=== PATIENT | male | born 1995 | race Two or more races ===

== ENCOUNTER 2024-06-03 19:57 | Inpatient (IN) | payer MEDICAID, OTHER ==
[~2024-06-03] VITALS: Ht 182.9 cm; Wt 133.3 kg
--- NOTE | 2024-06-03 20:26 | ED.PDOC ---
History of Present Illness HPI Comments 29 Year old male who came to ER via EMS for alcohol intoxication. Patient admits that he drank 2 bottles of vodka today, he started feeling anxious, and became short of breath so he called paramedics. Denies being suicidal. Chief Complaint: ETOH Time Seen by MD: 20:26 Reviewed Notes: Nurses Notes Allergies: Coded Allergies: NO KNOWN ALLERGIES (Unverified , 06/03/24) Information Source: Patient Mode of Arrival: Ambulatory Severity: Moderate Timing: Hours Duration: Since onset Prehospital treatment: None Medication Refill: For: Other Past Medical History PAST MEDICAL HISTORY: Denies Surgical History: Denies all surgeries Family History Family History: Reviewed,noncontributory to illness Social History Smoker: Non-Smoker Alcohol: Heavy Drugs: Denies Drug Use Lives In: Home Constitutional: denies: chills, diaphoresis, fatigue, fever, malaise, sweats, weakness, others EENTM: denies: blurred vision, double vision, ear bleeding, ear discharge, ear drainage, ear pain, ear ringing, eye pain, eye redness, hearing loss, mouth pain, mouth swelling, nasal discharge, nose bleeding, nose congestion, nose pain, photophobia, tearing, throat pain, throat swelling, voice changes, others Respiratory: reports: SOB at rest, shortness of breath; denies: cough, hemoptysis, orthopnea, SOB with excertion, stridor, wheezing, others Cardiovascular: denies: chest pain, dizzy spells, diaphoresis, Dyspnea on exertion, edema, irregular heart beat, left arm pain, lightheadedness, palpitations, PND, syncope, others Gastrointestinal: denies: abdomen distended, abdominal pain, blood streaked bowels, constipated, diarrhea, dysphagia, difficulty swallowing, hematemesis, melena, nausea, poor appetite, poor fluid intake, rectal bleeding, rectal pain, vomiting, others Genitourinary: denies: burning, dysuria, flank pain, frequency, hematuria, incontinence, penile discharge, penile sore, pain, testicle pain, testicle swelling, urgency, others Neurological: denies: dizziness, fainting, headache, left sided numbness, left sided weakness, numbness, paresthesia, pre-existing deficit, right sided numbnes s, right sided weakness, seizure, speech problems, tingling, tremors, weakness, others Musculoskeletal: denies: back pain, gout, joint pain, joint swelling, muscle pain, muscle stiffness, neck pain, others Integumetry: denies: bruises, change in color, change in hair/nails, dryness, laceration, lesions, lumps, rash, wounds, others Allergic/Immunocompromised: denies: Difficulty Healing, Frequent Infections, Hives, Itching, others Hematologic/Lymphatic: denies: anemia, blood clots, easy bleeding, easy bruising, swollen glands, others Endocrine: denies: excessive hunger, excessive sweating, excessive thirst, excessive urination, flushing, intolerance to cold, intolerance to heat, unexplained weight gain, unexplained weight loss, others Psychiatric: reports: anxiety; denies: bipolar disorder, depression, hopeless, panic disorder, schizophrenia, sleepless, suicidal, others Physical Exam General Appearance: No Apparent Distress, Normal HEENT: Normal ENT Inspection, Pharynx Normal, TMs Normal Neck: Full Range of Motion, Non-Tender, Normal, Normal Inspection Respiratory: Chest Non-Tender, Lungs Clear, No Accessory Muscle Use, No Respiratory Distress, Normal Breath Sounds Cardiovascular: No Edema, No JVD, No Murmur, No Gallop, Normal Peripheral Pulse s, Regular Rate/Rhythm Breast Exam: Deferred Gastrointestinal: No Organomegaly, Non Tender, No Pulsatile Mass, Normal Bowel Sounds, Soft Genitalia: Deferred Pelvic: Deferred Rectal: Deferred Extremities: No calf tenderness, Normal capillary refill, Normal inspection, Normal range of motion, Non-tender, No pedal edema Musculoskeletal : Apperance: Normal Neurologic: Alert, police lieutenant patrol II-XII nml as Tested, No Motor Deficits, Normal Affect, Normal Mood, No Sensory Deficits Cerebellar Function: Normal Reflexes: Normal Skin: Dry, Normal Color, Warm Lymphatic: No Adenopathy Was a procedure done? Was a procedure done?: No Differential Dx Considerations may include: Alcohol intoxication, anxiety X-Ray, Labs, Meds, VS Vital Signs Date Time Temp Pulse Resp B/P (MAP) Pulse Ox O2 Delivery O2 Flow Rate FiO2 06/04/24 05:00 104 10 112/37 (62) 93 06/04/24 03:27 125 16 116/77 (90) 95 06/04/24 03:00 120 28 126/88 (101) 98 06/04/24 01:00 113 28 114/80 (91) 98 06/03/24 23:00 109 15 139/90 (106) 98 06/03/24 21:00 103 15 120/67 (84) 98 06/03/24 20:34 105 15 94 Room Air* 0 21 06/03/24 20:34 98.7 105 15 115/85 (95) 94 98.7 06/03/24 19:58 107 06/03/24 19:57 98.7 106 18 130/99 (109) 95 Lab Test 06/04/24 02:03 06/03/24 23:20 Range/Units White Blood Count 12.3 H 4.4-10.8 10^3/uL Red Blood Count 5.14 4.5-5.90 10^6/uL Hemoglobin 15.0 13.5-17.5 g/dL Hematocrit 44.9 41.0-53.0 % Mean Corpuscular Volume 87.4 80.0-100.0 fL Mean Corpuscular Hemoglobin 29.2 28.0-32.0 pg Mean Corpuscular Hemoglobin Concent 33.4 32.0-36.0 g/dL Red Cell Distribution Width 15.1 H 11.8-14.3 % Platelet Count 498 H 140-450 10^3/uL Mean Platelet Volume 7.2 6.9-10.8 fL Neutrophils (%) (Auto) 62.2 37.0-80.0 % Lymphocytes (%) (Auto) 31.0 10.0-50.0 % Monocytes (%) (Auto) 5.5 0.0-12.0 % Eosinophils (%) (Auto) 0.8 0.0-7.0 % Basophils (%) (Auto) 0.5 0.0-2.0 % Neutrophils # (Auto) 7.6 1.6-8.6 10 ^3/uL Lymphocytes # (Auto) 3.8 0.4-5.4 10 ^3/uL Monocytes # (Auto) 0.7 0-1.3 10 ^3/uL Eosinophils # (Auto) 0.1 0-0.8 10 ^3/uL Basophils # (Auto) 0.1 0-0.2 10 ^3/uL Nucleated Red Blood Cells 0.0 % Sodium Level 144 136-145 mmol/L Potassium Level 3.5 3.5-5.1 mmol/L Chloride Level 109 H 98-107 mmol/L Carbon Dioxide Level 23 20-31 mmol/L Anion Gap 12 5-15 Blood Urea Nitrogen < 5 L 9-23 mg/dL Creatinine 0.76 0.700-1.30 mg/dL Glomerular Filtration Rate Calc 123 >90 mL/min BUN/Creatinine Ratio 6.6 L 10.0-20.0 Serum Glucose 102 74-106 mg/dL Calcium Level 9.2 8.7-10.4 mg/dL Plasma/Serum Blood Alcohol 242.4 H <10 mg/dL Urine Color Light-yellow Yellow Urine Clarity Clear Clear Urine pH 6.0 5.0-9.0 Urine Specific [place] 1.014 1.001-1.035 Urine Protein Negative Negative Urine Ketones Negative Negative Urine Blood Negative Negative /uL Urine Nitrite Negative Negative Urine Bilirubin Negative Negative Urine Urobilinogen Normal Negative mg/dL Urine Leukocyte Esterase Negative Negative /uL Urine RBC 2 0 - 3 /hpf Urine WBC 1 0 - 3 /hpf Urine Squamous Epithelial Cells None seen <5 /hpf Urine Bacteria Few H None Seen /hpf Urine Mucus Few None Seen Urine Glucose Normal Normal mg/dL Current Medications Medications (Trade) Dose Ordered Sig/Malia Route Start Time Stop Time Status Last Admin Sodium Chloride 1,000 ml @ 1,000 mls/hr Q1H ONCE IV 06/04/24 02:15 06/04/24 03:14 DC 06/04/24 02:30 Ondansetron HCl (Zofran) 4 mg ONCE ONCE IV 06/04/24 02:15 06/04/24 02:16 DC 06/04/24 02:12 Lorazepam (Ativan Inj) 1 mg ONCE ONCE IV 06/04/24 02:15 06/04/24 02:16 DC 06/04/24 02:13 Time of 1ST Reevaluation: 20:24 Reevaluation 1ST: Unchanged Patient Education/Counseling: Diagnosis, Treatment Family Education/Counseling: No Family Present Departure 1 Departure Time of Disposition: 05:37 (Patient presented with alcohol intoxication. We will continue to monitor patient told clinically sober) Impression: Primary Impression: Alcohol intoxication delirium Disposition: 30 STILL A PATIENT Condition: Serious Critical Care Note Critical Care Time?: No Stability Stability form required: No Heart Score Heart Score: Heart Score Response (Comments) Value History N/A 0 EKG N/A 0 Age N/A 0 Risk Factors N/A 0 Troponin N/A 0 Total 0 I personally scribed for MARIAH NICHOLS MD ([facility]) on 06/03/24 at 20:26. Electronically submitted by [place] ([facility]). I personally scribed for MARIAH NICHOLS MD ([facility]) on 06/04/24 at 01:59. Electronically submitted by [place] ([facility]). MARIAH NICHOLS MD Jun 03, 2024 20:26
[2024-06-03 20:34] VITALS: PULSE 105; RESP 15; O2SAT 94
[2024-06-03 23:38] LABS: Urine Bacteria FEW /hpf (None Seen); Urine Blood Negative /uL (Negative); Urine Clarity Clear (Clear); Urine Color Light-Yellow (Yellow); Urine Mucus FEW (None Seen); Urine Protein, UAD Negative (Negative); Urine Specific Gravity 1.014 (1.001-1.035); Urine Urobilinogen Normal (Negative); Urine WBC 1 /hpf (0 - 3)
[2024-06-04] MEDS: ONDANSETRON HCL 4 MG/2 ML VIAL IV ONE (02:12)
[2024-06-04] MEDS: LORazepam 2MG/ML-1ML VIAL IV ONE ×3 (02:13→13:20)
[2024-06-04 02:17] LABS: Basophils # (auto) 0.1 10 ^3/uL (0-0.2); Basophils % (auto) 0.5 % (0.0-2.0); Eosinophils # (auto) 0.1 10 ^3/uL (0-0.8); Eosinophils % (auto) 0.8 % (0.0-7.0); Hematocrit 44.9 % (41.0-53.0); Lymphocytes # (auto) 3.8 10 ^3/uL (0.4-5.4); Mean Corpuscular Hemoglobin 29.2 pg (28.0-32.0); Mean Corpuscular Hgb Conc. 33.4 g/dL (32.0-36.0); Mean Corpuscular Volume 87.4 fL (80.0-100.0); Monocytes # (auto) 0.7 10 ^3/uL (0-1.3); Monocytes % (auto) 5.5 % (0.0-12.0); Neutrophils # (auto) 7.6 10 ^3/uL (1.6-8.6); Neutrophils % (auto) 62.2 % (37.0-80.0); Platelet Count (auto) 498 10^3/uL (140-450); Red Blood Cells 5.14 10^6/uL (4.5-5.90); Red Cell Distribution Width 15.1 % (11.8-14.3); White Blood Cell 12.3 10^3/uL (4.4-10.8)
--- NOTE | 2024-06-04 02:18 | ECG ---
[facility] Test Date: 2024-06-03 Test Time: 19:58:11 Pat Name: MARIA ISABEL WIN Department: ED Room: 0288T Gender: M Entry Level Civil Engineer: : 1995 Requested By: MARIAH NICHOLS Order Number: [id number] Reading MD: Av Barkley Measurements Intervals [place] Rate: 107 P: 18 [place]: 144 QRS: -37 QRSD: 109 T: 5 QT: 349 QTc: 466 Interpretive Statements Sinus tachycardia Left axis deviation Electronically Signed On 06-15-2024 12:38:26 PST by Av Barkley Please click the below link to view image of tracing.
[2024-06-04 02:24] LABS: Chloride 109 mmol/L (98-107); Potassium 3.5 mmol/L (3.5-5.1); Sodium 144 mmol/L (136-145)
[2024-06-04 02:25] LABS: Anion Gap 12 (5-15); Carbon Dioxide 23 mmol/L (20-31)
[2024-06-04 02:26] LABS: Calcium 9.2 mg/dL (8.7-10.4)
[2024-06-04 02:30] LABS: Glucose 102 mg/dL (74-106)
[2024-06-04] MEDS: SODIUM CHLORIDE 0.9% 1,000 ML IV ONE ×4 (02:30→17:16)
[2024-06-04 02:31] LABS: BUN/Creatinine Ratio 6.6 (10.0-20.0); Blood Urea Nitrogen < 5 mg/dL (9-23)
[2024-06-04 03:06] LABS: Blood Alcohol 242.4 mg/dL (<10)
[2024-06-04] MEDS: THIAMINE 100mg/ml INJ (200mg/2ml VIAL) IV ONE (08:45)
[2024-06-04 08:52] VITALS: PULSE 126; RESP 18; O2SAT 95
[2024-06-04] MEDS ORDERED: ONDANSETRON HCL 4 MG/2 ML VIAL IV PRN (17:00)
[2024-06-04] MEDS ORDERED: LORazepam 2MG/ML-1ML VIAL IV SCH (17:00)
[2024-06-04] MEDS ORDERED: HYDROcodone-ACET 5/325MG TAB PO PRN (17:00)
[2024-06-04] MEDS ORDERED: TEMAZEPAM 15 MG CAP PO PRN (17:00)
[2024-06-04] MEDS ORDERED: ACETAMINOPHEN 325 MG TAB PO PRN (17:00)
[2024-06-04] MEDS ORDERED: DOCUSATE SOD 100 MG CAP PO PRN (17:00)
[2024-06-04] MEDS ORDERED: MAALOX PLUS or MAALOX 30 ML PO PRN (17:00)
[2024-06-04] MEDS: MULTIPLE VITAMIN TAB PO ONE (17:00)
[2024-06-04] MEDS ORDERED: LORazepam 0.5 MG TAB PO SCH ×2 (17:00)
--- NOTE | 2024-06-04 17:12 | DVHHP2 ---
History of Present Illness Reason for Visit: intoxication History of Present Illness 29 yo etoh heavy user states to drink 2 plus bottles of vodka daily with complaints weakness and started having signs of withdrawal in the ed recommended for admission for safety Psych: Anxiety Review of Systems Constitutional: Yes: Sweats, Weakness; No: Fever, Chills, Malaise, Other Eyes: No: Pain, Vision change, Conjunctivae inflammation, Eyelid inflammation, Other, Redness ENT: No: Ear pain, Ear discharge, Nose pain, Nose discharge, Nose congestion, Mouth pain, Mouth swelling, Throat pain, Throat swelling, Other Respiratory: No: Cough, Dry, Shortness of breath, SOB with excertion, Wheezing, Hemoptysis, Pleuritic Pain, Sputum, Wheezing, Other Cardiovascular: No: Chest Pain, Palpitations, Orthopnea, Paroxysmal Noc. Dyspnea, Edema, Lt Headedness, Other Gastrointestinal: No: Nausea, Vomiting, Abdominal Pain, Diarrhea, Constipation, Melena, Hematochezia, Other Genitourinary: No Dysuria, No Frequency, No Incontinence, No Hematuria, No Retention, No Other Musculoskeletal: No: other, neck pain, shoulder pain, arm pain, back pain, hand pain, leg pain, foot pain Skin: No: Rash, Lesions, Jaundice, Bruising, Other Neurological: Weakness, Change in speech; No: Numbness, Incoordination, Confusion, Seizures, Other Allergies: Coded Allergies: NO KNOWN ALLERGIES (Unverified , 06/03/24) Exam Vital Signs Vital Signs Date Time Temp Pulse Resp B/P (MAP) Pulse Ox O2 Delivery O2 Flow Rate FiO2 06/04/24 10:00 125 17 104/68 (80) 94 06/04/24 08:52 Room Air* 0 21 06/04/24 08:00 98.6 98.6 General Appearance: Alert HEENT: Atraumatic, PERRLA Respiratory: Clear to auscultation, Normal air movement Cardiovascular: Regular rate, Normal S1, Normal S2 Abdominal: Normal bowel sounds, Soft, No tenderness Extremities: No clubbing, No cyanosis Skin: No rashes, No breakdown Neuro: Normal gait, Normal speech Psych/Mental Status: Mood NL Labs/Xrays Labs Test 06/04/24 02:03 06/03/24 23:20 Range/Units White Blood Count 12.3 H 4.4-10.8 10^3/uL Red Blood Count 5.14 4.5-5.90 10^6/uL Hemoglobin 15.0 13.5-17.5 g/dL Hematocrit 44.9 41.0-53.0 % Mean Corpuscular Volume 87.4 80.0-100.0 fL Mean Corpuscular Hemoglobin 29.2 28.0-32.0 pg Mean Corpuscular Hemoglobin Concent 33.4 32.0-36.0 g/dL Red Cell Distribution Width 15.1 H 11.8-14.3 % Platelet Count 498 H 140-450 10^3/uL Mean Platelet Volume 7.2 6.9-10.8 fL Neutrophils (%) (Auto) 62.2 37.0-80.0 % Lymphocytes (%) (Auto) 31.0 10.0-50.0 % Monocytes (%) (Auto) 5.5 0.0-12.0 % Eosinophils (%) (Auto) 0.8 0.0-7.0 % Basophils (%) (Auto) 0.5 0.0-2.0 % Neutrophils # (Auto) 7.6 1.6-8.6 10 ^3/uL Lymphocytes # (Auto) 3.8 0.4-5.4 10 ^3/uL Monocytes # (Auto) 0.7 0-1.3 10 ^3/uL Eosinophils # (Auto) 0.1 0-0.8 10 ^3/uL Basophils # (Auto) 0.1 0-0.2 10 ^3/uL Nucleated Red Blood Cells 0.0 % Sodium Level 144 136-145 mmol/L Potassium Level 3.5 3.5-5.1 mmol/L Chloride Level 109 H 98-107 mmol/L Carbon Dioxide Level 23 20-31 mmol/L Anion Gap 12 5-15 Blood Urea Nitrogen < 5 L 9-23 mg/dL Creatinine 0.76 0.700-1.30 mg/dL Glomerular Filtration Rate Calc 123 >90 mL/min BUN/Creatinine Ratio 6.6 L 10.0-20.0 Serum Glucose 102 74-106 mg/dL Calcium Level 9.2 8.7-10.4 mg/dL Plasma/Serum Blood Alcohol 242.4 H <10 mg/dL Urine Color Light-yellow Yellow Urine Clarity Clear Clear Urine pH 6.0 5.0-9.0 Urine Specific [place] 1.014 1.001-1.035 Urine Protein Negative Negative Urine Ketones Negative Negative Urine Blood Negative Negative /uL Urine Nitrite Negative Negative Urine Bilirubin Negative Negative Urine Urobilinogen Normal Negative mg/dL Urine Leukocyte Esterase Negative Negative /uL Urine RBC 2 0 - 3 /hpf Urine WBC 1 0 - 3 /hpf Urine Squamous Epithelial Cells None seen <5 /hpf Urine Bacteria Few H None Seen /hpf Urine Mucus Few None Seen Urine Glucose Normal Normal mg/dL Assessment/Plan Assessment/Plan Admit Isaias Acute ETOH withdrawal suspected ETOH level > 240 Patient no acute distress IV hydration [facility] ETOH withdrawal protocol ativan from breakthrough isaias until stable for discharge possible rehab needs on discharge Plan discussed with: Patient My Orders Orders - JAIME OVALLE MD Procedure Category Date Status Time Complete Blood Count LAB 06/04/24 Logged 16:50 Comprehensive LAB 06/04/24 Logged Metabolic Panel 16:50 Blood Alcohol LAB 06/04/24 Logged 16:50 Sodium Chloride 0.9% PHA 06/04/24 Logged 17:00 Magnesium LAB 06/04/24 Logged 16:50 Thiamine Inj PHA 06/05/24 Logged 10:00 Folic Acid Tablet PHA 06/05/24 Logged 10:00 Multiple Vitamin PHA 06/04/24 Logged Tablet (Mvi Tab) 17:00 Lorazepam 2mg/Ml Inj PHA 06/04/24 Logged (Ativan Inj) 17:00 Lorazepam 2mg/Ml Inj PHA 06/04/24 Logged (Ativan Inj) 17:00 Lorazepam Tablet PHA 06/04/24 Logged (Ativan Tablet) 17:00 Lorazepam Tablet PHA 06/04/24 Logged (Ativan Tablet) 17:00 Etoh Withdrawal [place] 06/04/24 In Process Assessment 16:50 Etoh Withdrawal [place] 06/04/24 In Process Assessment 16:50 Admit ADMIT 06/04/24 Transmitted 16:50 Code Status CODE 06/04/24 Transmitted 16:50 Vital Signs [place] 06/04/24 In Process 16:50 Review Orders With [facility] 06/04/24 In Process Adm. 16:50 Regular Diet DIET 06/04/24 Transmitted Dinner Alum & Mag PHA 06/04/24 Logged Hydrox-Simethicone 17:00 Docusate Sodium PHA 06/04/24 Logged Capsule (Colace 17:00 Acetaminophen Tablet PHA 06/04/24 Logged (Tylenol Tablet) 17:00 Temazepam (Restoril) PHA 06/04/24 Logged 17:00 Notify Md Of Changes [facility] 06/04/24 In Process From Base 16:50 Advance Directive [facility] 06/04/24 In Process 16:50 Patient Condition ORDERS 06/04/24 Transmitted 16:50 Allergies [facility] 06/04/24 In Process 16:50 Hydrocodone-Acet PHA 06/04/24 Logged 5/325mg Tab (Novinger 17:00 Ondansetron Hcl PHA 06/04/24 Logged (Zofran) 17:00 Notify Md Of Changes [facility] 06/04/24 In Process From Base 16:50 Hammer Smith For [facility] 06/04/24 In Process 24 Hours 16:50 Emergency Dysrhythmia [facility] 06/04/24 In Process Protocol 16:50 Rhythm Strips Once [facility] 06/04/24 In Process Every Shift 16:50 Oxygen By Nasal RT 06/04/24 Transmitted Cannula 16:50 Problem List: (1) Alcohol intoxication delirium Date of Service: Jun 04, 2024 Billing Provider: JAIME OVALLE MD Common Visit Codes: [id number] INP/OBS CARE (HIGH) JAIME OVALLE MD Jun 04, 2024 17:12
[2024-06-04 18:05] LABS: Basophils # (auto) 0 10 ^3/uL (0-0.2); Basophils % (auto) 0.5 % (0.0-2.0); Eosinophils # (auto) 0 10 ^3/uL (0-0.8); Eosinophils % (auto) 0.3 % (0.0-7.0); Hematocrit 39.1 % (41.0-53.0); Hemoglobin 13.3 g/dL (13.5-17.5); Lymphocytes # (auto) 1.6 10 ^3/uL (0.4-5.4); Lymphocytes % (auto) 17.8 % (10.0-50.0); Mean Corpuscular Hemoglobin 29.7 pg (28.0-32.0); Mean Corpuscular Volume 87.5 fL (80.0-100.0); Monocytes # (auto) 0.7 10 ^3/uL (0-1.3); Monocytes % (auto) 8.2 % (0.0-12.0); Neutrophils # (auto) 6.5 10 ^3/uL (1.6-8.6); Neutrophils % (auto) 73.2 % (37.0-80.0); Platelet Count (auto) 430 10^3/uL (140-450); Red Blood Cells 4.47 10^6/uL (4.5-5.90); Red Cell Distribution Width 14.8 % (11.8-14.3); White Blood Cell 8.9 10^3/uL (4.4-10.8)
[2024-06-04 18:14] LABS: Alanine Aminotransferase 24 U/L (7-40); Alkaline Phosphatase 89 U/L (46-116); Anion Gap 9 (5-15); Aspartate Aminotransferase 16 U/L (13-40); BUN/Creatinine Ratio 8.8 (10.0-20.0); Blood Alcohol < 3.0 mg/dL (<10); Blood Urea Nitrogen 7 mg/dL (9-23); Calcium 9.1 mg/dL (8.7-10.4); Carbon Dioxide 26 mmol/L (20-31); Chloride 107 mmol/L (98-107); Glucose 88 mg/dL (74-106); Magnesium 1.7 mg/dL (1.6-2.6); Potassium 3.6 mmol/L (3.5-5.1); Sodium 142 mmol/L (136-145)
[2024-06-04 18:15] LABS: Albumin 4.2 g/dL (3.2-4.8); Total Protein 7.2 g/dL (5.7-8.2)
[2024-06-04 18:16] LABS: Bilirubin, Total 0.8 mg/dL (0.2-1.0)
[2024-06-04] MEDS: LORazepam 2MG/ML-1ML VIAL IV SCH (18:24)
[2024-06-04 19:39] VITALS: PULSE 114; RESP 17; O2SAT 97
[2024-06-05 08:00] VITALS: PULSE 79; RESP 16; O2SAT 96
[2024-06-05] MEDS: chlordiazePOXIDE HCL 25 MG CAP PO SCH (09:35)
[2024-06-05] MEDS: THIAMINE 100mg/ml INJ (200mg/2ml VIAL) IV SCH (09:35)
[2024-06-05] MEDS: FOLIC ACID 1 MG TAB PO SCH (09:35)
--- NOTE | 2024-06-05 11:45 | DVHPN2 ---
Subjective The patient seen and examined at bedside. Still shaking, denies hallucination. Reviewed: Care Plan, H&P, Labs, Medications, Previous Orders, Radiology Changes from previous H/P or p: No Changes Eyes: No Pain, No Vision change, No Conjunctivae inflammation, No Eyelid inflammation, No Other, No Redness ENT: No Ear pain, No Ear discharge, No Nose pain, No Nose discharge, No Nose congestion, No Mouth pain, No Mouth swelling, No Throat pain, No Throat swelling, No Other Cardiovascular: No Chest Pain, No Palpitations, No Orthopnea, No Paroxysmal Noc. Dyspnea, No Edema, No Lt Headedness, No Other Respiratory: No Cough, No Dry, No Shortness of breath, No SOB with excertion, No Wheezing, No Hemoptysis, No Pleuritic Pain, No Sputum, No Other Gastrointestinal: No Nausea, No Vomiting, No Abdominal Pain, No Diarrhea, No Constipation, No Melena, No Hematochezia, No Other Genitourinary: No Dysuria, No Frequency, No Incontinence, No Hematuria, No Retention, No Other Musculoskeletal: No other, No neck pain, No shoulder pain, No arm pain, No back pain, No hand pain, No leg pain, No foot pain Skin: No Rash, No Lesions, No Jaundice, No Bruising, No Other Objective Vitals Vital Signs Date Time Temp Pulse Resp B/P (MAP) Pulse Ox O2 Delivery O2 Flow Rate FiO2 06/05/24 10:50 84 06/05/24 10:12 98.0 18 135/74 (94) 95 98.0 06/05/24 08:00 Room Air* 0 21 Intake/Output Intake and Output 06/05/24 07:00 Intake Total 2050 ml Balance 2050 ml Intake IV Total 2050 ml General Appearance: Alert, No acute distress HEENT: Atraumatic, PERRLA, EOMI, Mucous membr. moist/pink Neck: Supple Lungs: Clear to auscultation, Normal air movement Cardiovascular: Regular rate, Normal S1, Normal S2, No murmurs, Rubs Abdomen: Normal bowel sounds, Soft Neuro: Cranial nerves 3-12 NL Psych/Mental Status: Mental status NL Medications Current Medications Medications Dose Ordered Sig/Malia Route Start Time Stop Time Status Last Admin Dose Admin Thiamine HCl 100 mg DAILY IV 06/05/24 10:00 06/05/24 09:35 100 MG Folic Acid 1 mg DAILY PO 06/05/24 10:00 06/05/24 09:35 1 MG Lorazepam 1 mg Q4H IV 06/04/24 17:00 06/05/24 09:35 1 MG Al Hydrox/Mg Hydrox/Simethicone 30 ml Q6HP PRN PO 06/04/24 17:00 Docusate Sodium 100 mg BIDPRN PRN PO 06/04/24 17:00 Acetaminophen 650 mg Q6HP PRN PO 06/04/24 17:00 Temazepam 15 mg QHSP PRN PO 06/04/24 17:00 Acetaminophen/ Hydrocodone Bitart 1 tab Q4HP PRN PO 06/04/24 17:00 Ondansetron HCl 4 mg Q4HP PRN IV 06/04/24 17:00 Chlordiazepoxide HCl 50 mg Q8H PO 06/05/24 07:30 06/05/24 23:31 06/05/24 09:35 50 MG Chlordiazepoxide HCl 50 mg Q12HR PO 06/06/24 10:00 06/06/24 22:01 Chlordiazepoxide HCl 25 mg Q12HR PO 06/07/24 10:00 06/07/24 22:01 Chlordiazepoxide HCl 25 mg QAM PO 06/08/24 07:00 06/08/24 07:01 Laboratory Results Laboratory Tests 06/04/24 17:25 Chemistry Test 06/04/24 17:25 Albumin 4.2 g/dL (3.2-4.8) Calcium Level 9.1 mg/dL (8.7-10.4) Magnesium Level 1.7 mg/dL (1.6-2.6) Total Protein 7.2 g/dL (5.7-8.2) LFT Test 06/04/24 17:25 Alanine Aminotransferase (ALT) 24 U/L (7-40) Alkaline Phosphatase 89 U/L (46-116) Aspartate Amino Transferase (AST) 16 U/L (13-40) Total Bilirubin 0.8 mg/dL (0.2-1.0) Urinalysis Test 06/03/24 23:20 Urine Color Light-yellow (Yellow) Urine Clarity Clear (Clear) Urine pH 6.0 (5.0-9.0) Urine Specific [place] 1.014 (1.001-1.035) Urine Protein Negative (Negative) Urine Ketones Negative (Negative) Urine Blood Negative /uL (Negative) Urine Nitrite Negative (Negative) Urine Bilirubin Negative (Negative) Urine Urobilinogen Normal mg/dL (Negative) Urine Leukocyte Esterase Negative /uL (Negative) Urine RBC 2 /hpf (0 - 3) Urine WBC 1 /hpf (0 - 3) Urine Squamous Epithelial Cells None seen /hpf (<5) Urine Bacteria Few /hpf (None Seen) H Urine Mucus Few (None Seen) Urine Glucose Normal mg/dL (Normal) Labs and/or images reviewed: Labs reviewed by me Assessment/Plan Assessment/Plan Alcohol abuse Alcohol withdrawal Plan: Continuing current management. Continuing with banana bag. Continuing with Librium. Advised the patient to stop drinking. Advised the patient to drawn alcohol anonymous as outpatient. Advised the patient to seek for rehab if he wanted to give up alcohol. Plan discussed with: Patient Date of Service: Jun 05, 2024 Billing Provider: SILVIO BRASWELL MD Common Visit Codes: [id number] INP/OBS CARE(HIGH) SILVIO BRASWELL MD Jun 05, 2024 11:45
[2024-06-05] MEDS ORDERED: LORazepam 2MG/ML-1ML VIAL IV PRN (17:30)
[2024-06-05 18:30] VITALS: BP 128/84; PULSE 94; RESP 18; TEMP 97.9; O2SAT 96
[2024-06-05 18:44] VITALS: BP 128/84; PULSE 94; RESP 18; TEMP 97.9; O2SAT 96
[2024-06-05 20:00] VITALS: PULSE 107; PULSE 95; RESP 18; O2SAT 96
[2024-06-05 20:53] VITALS: BP 117/72; PULSE 67; RESP 18; TEMP 98; O2SAT 96
[2024-06-06 00:54] VITALS: BP 131/80; PULSE 89; RESP 18; TEMP 97.5; O2SAT 96
[2024-06-06 04:19] VITALS: BP 126/87; PULSE 86; RESP 18; TEMP 97.9; O2SAT 96
[2024-06-06 08:00] VITALS: PULSE 86
[2024-06-06] MEDS: chlordiazePOXIDE HCL 25 MG CAP PO SCH (08:16)
[2024-06-06 08:41] VITALS: BP 124/76; PULSE 78; RESP 19; TEMP 97.3; O2SAT 96
[2024-06-06 12:30] VITALS: BP 111/76; PULSE 87; RESP 18; TEMP 97.8; O2SAT 95
--- NOTE | 2024-06-06 14:39 | DVHDS2 ---
Discharge Summary Date of Admission Jun 04, 2024 at 16:50 Date of Discharge: Jun 06, 2024 Labs/Diagnostic Data: Laboratory Results Test 06/04/24 17:25 06/03/24 23:20 White Blood Count 8.9 10^3/uL (4.4-10.8) Red Blood Count 4.47 10^6/uL (4.5-5.90) Hemoglobin 13.3 g/dL (13.5-17.5) Hematocrit 39.1 % (41.0-53.0) Mean Corpuscular Volume 87.5 fL (80.0-100.0) Mean Corpuscular Hemoglobin 29.7 pg (28.0-32.0) Mean Corpuscular Hemoglobin Concent 34.0 g/dL (32.0-36.0) Red Cell Distribution Width 14.8 % (11.8-14.3) Platelet Count 430 10^3/uL (140-450) Mean Platelet Volume 7.4 fL (6.9-10.8) Neutrophils (%) (Auto) 73.2 % (37.0-80.0) Lymphocytes (%) (Auto) 17.8 % (10.0-50.0) Monocytes (%) (Auto) 8.2 % (0.0-12.0) Eosinophils (%) (Auto) 0.3 % (0.0-7.0) Basophils (%) (Auto) 0.5 % (0.0-2.0) Neutrophils # (Auto) 6.5 10 ^3/uL (1.6-8.6) Lymphocytes # (Auto) 1.6 10 ^3/uL (0.4-5.4) Monocytes # (Auto) 0.7 10 ^3/uL (0-1.3) Eosinophils # (Auto) 0 10 ^3/uL (0-0.8) Basophils # (Auto) 0 10 ^3/uL (0-0.2) Nucleated Red Blood Cells 0.0 % Sodium Level 142 mmol/L (136-145) Potassium Level 3.6 mmol/L (3.5-5.1) Chloride Level 107 mmol/L (98-107) Carbon Dioxide Level 26 mmol/L (20-31) Anion Gap 9 (5-15) Blood Urea Nitrogen 7 mg/dL (9-23) Creatinine 0.80 mg/dL (0.700-1.30) Glomerular Filtration Rate Calc 121 mL/min (>90) BUN/Creatinine Ratio 8.8 (10.0-20.0) Serum Glucose 88 mg/dL (74-106) Calcium Level 9.1 mg/dL (8.7-10.4) Magnesium Level 1.7 mg/dL (1.6-2.6) Total Bilirubin 0.8 mg/dL (0.2-1.0) Aspartate Amino Transferase (AST) 16 U/L (13-40) Alanine Aminotransferase (ALT) 24 U/L (7-40) Alkaline Phosphatase 89 U/L (46-116) Total Protein 7.2 g/dL (5.7-8.2) Albumin 4.2 g/dL (3.2-4.8) Plasma/Serum Blood Alcohol < 3.0 mg/dL (<10) Urine Color Light-yellow (Yellow) Urine Clarity Clear (Clear) Urine pH 6.0 (5.0-9.0) Urine Specific [place] 1.014 (1.001-1.035) Urine Protein Negative (Negative) Urine Ketones Negative (Negative) Urine Blood Negative /uL (Negative) Urine Nitrite Negative (Negative) Urine Bilirubin Negative (Negative) Urine Urobilinogen Normal mg/dL (Negative) Urine Leukocyte Esterase Negative /uL (Negative) Urine RBC 2 /hpf (0 - 3) Urine WBC 1 /hpf (0 - 3) Urine Squamous Epithelial Cells None seen /hpf (<5) Urine Bacteria Few /hpf (None Seen) Urine Mucus Few (None Seen) Urine Glucose Normal mg/dL (Normal) Other Laboratory Tests 06/04/24 17:25 Brief Hx & Hospital Course: 29 yo etoh heavy user states to drink 2 plus bottles of vodka daily with complaints weakness and started having signs of withdrawal in the ed recommended for admission for safety Alcohol abuse Alcohol withdrawal symptomes pt did not develop significant symptoms of withdrawal, after discussing with pt he agrees to be discharged to home Condition at Discharge: Stable Final Diagnosis/Problems List see above Discharge Disposition: Home Discharge Statement: "Patient was advised to return to the ER or call 911 if any headaches, dizziness, shortness of breath, chest pain, abdominal pain, bleeding, fevers, or worsening of medical condition. Patient was counseled about treatment plan, medications, possible side effects, patientverbalized understanding. All questions were answered to the best of my ability. This discharge took greater then 30 minutes in planning, reviewing documentation, counseling the patient, and discussing with other team members." ASSESSMENT ASSESSMENT Assessment Date of Service: Jun 06, 2024 Billing Provider: MICHAEL PICKERING DO Common Visit Codes: [id number] DISCH DAY >30min MICHAEL PICKERING DO Jun 06, 2024 14:39
[2024-06-06] MEDS: chlordiazePOXIDE HCL 5 MG CAP PO ONE (14:57)
[2024-06-07] MEDS ORDERED: chlordiazePOXIDE HCL 25 MG CAP PO SCH (10:00)
[2024-06-08] MEDS ORDERED: chlordiazePOXIDE HCL 25 MG CAP PO SCH (07:00)
[2024-06-13] MEDS ORDERED: CHL10C PO (22:13)
== END 2024-06-06 17:51 | disposition home or self-care (01) | DRG 861 ==
LOC: EDBD 19:57 → ER 19:57 → TELE 06-04 16:50 → TELE-WESTW 06-05 18:30
PROVIDERS: ADMIT Hospitalist; ATTEND Internal Medicine
DX: R53.1 Weakness (principal); F10.129 Alcohol abuse with intoxication, unspecified; F10.139 Alcohol abuse with withdrawal, unspecified; F41.9 Anxiety disorder, unspecified; Y90.8 Blood alcohol level of 240 mg/100 ml or more
CPT/HCPCS: 36415; 80048; 80053; 80320; 81001; 83735; 85025; 93005; G0378; J2405

== ENCOUNTER 2024-06-14 02:08 | Inpatient (IN) | payer MEDICAID ==
[~2024-06-14] VITALS: Ht 175.3 cm; Wt 136.0 kg
[~2024-06-14 02:08] MED LIST: CHL10C PO
--- NOTE | 2024-06-14 02:30 | ED.PDOC ---
History of Present Illness HPI Comments 29 y/o M, with a Hx of morbid obesity, epileptic seizures, and polysubstance abuse, is BIBA for c/o generalized tremors s/p EtOH intoxication, today. Patient reports on stll having symptoms after being seen and discharged, today. nt l substance use/exposure. Patient denies having any weakness, numbness, tingling, dizziness, lightheadedness, chest pain, or other associated symptoms or modifiers at this time. 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 [employer] Past Medical History Past Medical History (Other): morbid obesity Surgical History: Denies all surgeries Family History Family History: Reviewed,noncontributory to illness Social History Smoker: Cigarettes, Other Alcohol: Heavy Drugs: Denies Drug Use Lives In: Home Constitutional: denies: chills, diaphoresis, fatigue, fever, malaise, sweats, weakness, others EENTM: denies: blurred vision, double vision, ear bleeding, ear discharge, ear drainage, ear pain, ear ringing, eye pain, eye redness, hearing loss, mouth pain, mouth swelling, nasal discharge, nose bleeding, nose congestion, nose pain, photophobia, tearing, throat pain, throat swelling, voice changes, others Respiratory: denies: cough, hemoptysis, orthopnea, SOB at rest, shortness of breath, SOB with excertion, stridor, wheezing, others Cardiovascular: denies: chest pain, dizzy spells, diaphoresis, Dyspnea on exertion, edema, irregular heart beat, left arm pain, lightheadedness, palpitations, PND, syncope, others Gastrointestinal: denies: abdomen distended, abdominal pain, blood streaked bowels, constipated, diarrhea, dysphagia, difficulty swallowing, hematemesis, me capo, nausea, poor appetite, poor fluid intake, rectal bleeding, rectal pain, vomiting, others Genitourinary: denies: burning, dysuria, flank pain, frequency, hematuria, incontinence, penile discharge, penile sore, pain, testicle pain, testicle swelling, urgency, others Neurological: denies: dizziness, fainting, headache, left sided numbness, left sided weakness, numbness, paresthesia, pre-existing deficit, right sided numbness, right sided weakness, seizure, speech problems, tingling, tremors, weakness, others Musculoskeletal: denies: back pain, gout, joint pain, joint swelling, muscle pain, muscle stiffness, neck pain, others Integumetry: denies: bruises, change in color, change in hair/nails, dryness, laceration, lesions, lumps, rash, wounds, others Allergic/Immunocompromised: denies: Difficulty Healing, Frequent Infections, Hives, Itching, others Hematologic/Lymphatic: denies: anemia, blood clots, easy bleeding, easy bruising, swollen glands, others Endocrine: denies: excessive hunger, excessive sweating, excessive thirst, excessive urination, flushing, intolerance to cold, intolerance to heat, unexplained weight gain, unexplained weight loss, others All Other Systems: Reviewed and Negative (see HPI) Physical Exam General Appearance: Moderate Distress, Other (The patient was experiencing some alcohol delirium tremens) HEENT: Normal ENT Inspection, Pharynx Normal, TMs Normal Neck: Full Range of Motion, Non-Tender, Normal, Normal Inspection Respiratory: Chest Non-Tender, Lungs Clear, No Accessory Muscle Use, No Respiratory Distress, Normal Breath Sounds Cardiovascular: No Edema, No JVD, No Murmur, No Gallop, Normal Peripheral Pulses, Regular Rate/Rhythm Breast Exam: Deferred Gastrointestinal: No Organomegaly, Non Tender, No Pulsatile Mass, Normal Bowel Sounds, Soft Genitalia: Deferred Pelvic: Deferred Rectal: Deferred Extremities: No calf tenderness, Normal capillary refill, No pedal edema Musculoskeletal : Apperance: Normal Neurologic: Alert, lieutenant firefighter II-XII nml as Tested, Motor Weakness, Normal Mood, No Sensory Deficits Cerebellar Function: Tremor Reflexes: Normal Skin: Dry, Normal Color, Warm Lymphatic: No Adenopathy Was a procedure done? Was a procedure done?: No Differential Dx Considerations may include: EtOH intoxication, withdrawal, delirium tremens, X-Ray, Labs, Meds, VS Vital Signs Date Time Temp Pulse Resp B/P (MAP) Pulse Ox O2 Delivery O2 Flow Rate FiO2 06/14/24 02:24 98.3 123 19 133/89 (104) 100 Z IV Hep-Lock is being established The patient was given 1 L bolus of normal saline The patient was given Ativan 2 mg IV push At this time, the patient was being observed here in the emergency department's Time of 1ST Reevaluation: 02:50 Reevaluation 1ST: Unchanged Patient Education/Counseling: Diagnosis, Treatment, Prognosis Family Education/Counseling: No Family Present Departure 1 Departure Time of Disposition: 02:35 Impression: Primary Impression: Alcohol intoxication delirium Disposition: 30 STILL A PATIENT Condition: Fair Critical Care Note Critical Care Time?: No Stability Stability form required: No Heart Score Heart Score: Heart Score Response (Comments) Value History N/A 0 EKG N/A 0 Age N/A 0 Risk Factors N/A 0 Troponin N/A 0 Total 0 I personally scribed for TRUPTI QUINONES MD ([email or web address]) on 06/14/24 at 02:30. Electronically submitted by Anival King ([email or web address]). TRUPTI QUINONES MD Jun 14, 2024 02:30
[2024-06-14 05:43] VITALS: PULSE 140; RESP 20; O2SAT 98
[2024-06-14] MEDS: ONDANSETRON HCL 4 MG/2 ML VIAL IV ONE (06:17)
[2024-06-14] MEDS: SODIUM CHLORIDE 0.9% 1,000 ML IV ONE (06:25)
[2024-06-14] MEDS: chlordiazePOXIDE HCL 25 MG CAP PO ONE (06:25)
[2024-06-14] MEDS: LORazepam 2MG/ML-1ML VIAL IV ONE ×2 (06:25→12:00)
--- NOTE | 2024-06-14 09:12 | ED.PDOC ---
Departure 1 Departure Time of Disposition: 09:10 (Patient was signed out to me pending sobriety for alcohol intoxication. Patient began and withdrawal from alcohol with tachycardia hypertension and tremulousness. Patient was given Ativan and Librium. We will admit patient for alcohol withdrawal.) Impression: Primary Impression: Alcohol withdrawal Qualified Codes: F10.931 - Alcohol use, unspecified with withdrawal delirium Disposition: ADMITTED INPATIENT Admit to: Med Surg Condition: Serious MARIAH NICHOLS MD Jun 14, 2024 09:12
[2024-06-14] MEDS ORDERED: hydrALAZINE HCL 20 MG/ML VL IV PRN (10:15)
--- NOTE | 2024-06-14 10:16 | DVHHP2 ---
History of Present Illness Reason for Visit: ETOH withdrawal and tremors History of Present Illness Thomas Elizondo is a 29YO M with pmHx of mordbid obesity, epileptic seizures, and polysubstance abuse who presents to the ED for generalized tremors s/p ETOH intoxication and a headache. Upon examination patient reports he has been d rinking nonstop for the last 3 days 750mL of vodka d/t stress from being unemployed. He also reports vaping daily for 6 years. Patient reports he lives with a roommate who also drinks alcohol. He reports of nausea and vomiting x 2 today. Patient reported that his seizures begain when he was 16YO and has been on keppra 500mg BID. Patient denies suicidal ideation, numbness, tingling, weakness, dizziness, lightheadness, abdomnial pain, shortness of breath, and chest pain. Serum Alcohol 339.8 [employer]: Other (epileptic seizures) Past Medical History Morbid obesity Polysubstance abuse Past Surgical History: None Family History: None Smoke: <1 pack per day ALCOHOL: heavy Drugs: None Lives: Roommate Domestic Violence: Neg Review of Systems Constitutional: No: Fever, Chills, Sweats, Weakness, Malaise, Other Eyes: No: Pain, Vision change, Conjunctivae inflammation, Eyelid inflammation, Other, Redness ENT: No: Ear pain, Ear discharge, Nose pain, Nose discharge, Nose congestion, Mouth pain, Mouth swelling, Throat pain, Throat swelling, Other Respiratory: No: Cough, Dry, Shortness of breath, SOB with excertion, Wheezing, Hemoptysis, Pleuritic Pain, Sputum, Wheezing, Other Cardiovascular: No: Chest Pain, Palpitations, Orthopnea, Paroxysmal Noc. Dyspnea, Edema, Lt Headedness, Other Gastrointestinal: Nausea, Vomiting; No: Abdominal Pain, Diarrhea, Constipation, Melena, Hematochezia, Other Genitourinary: No Dysuria, No Frequency, No Incontinence, No Hematuria, No Retention, No Other Musculoskeletal: No: other, neck pain, shoulder pain, arm pain, back pain, hand pain, leg pain, foot pain Skin: No: Rash, Lesions, Jaundice, Bruising, Other Neurological: Other (tremors); No: Weakness, Numbness, Incoordination, Change in speech, Confusion, Seizures Other headache Allergies: Coded Allergies: NO KNOWN ALLERGIES (Unverified , 06/03/24) Exam Vital Signs Vital Signs Date Time Temp Pulse Resp B/P (MAP) Pulse Ox O2 Delivery O2 Flow Rate FiO2 06/14/24 05:43 140 20 98 Room Air* 0 21 06/14/24 05:42 161/92 (115) 06/14/24 04:30 97.6 97.6 General Appearance: Alert, Oriented X3, Cooperative, No acute distress HEENT: PERRLA, EOMI Respiratory: Clear to auscultation, Normal air movement Cardiovascular: Normal S1, Normal S2, No murmurs Abdominal: Normal bowel sounds, Soft, No tenderness Extremities: No clubbing, No cyanosis, No edema, Normal pulses, No tenderness/swelling Skin: No rashes, No breakdown, No significant lesion Neuro: Normal gait, Normal speech, Strength at 5/5 X4 ext, Normal tone, Sensation intact Psych/Mental Status: Mental status NL, Mood NL Assessment/Plan Assessment/Plan Assessment: ETOH withdrawal Tremors Hx of morbid obesity Epileptic seizures Polysubstance abuse Plan: Admit to med surg CIWA protocol Diet as tolerated Anti-epileptics Pain management Antiemetics AM labs Octave Board Racker consult Reconciled home medications Discussed plan of care with patient and nurse Plan discussed with: Patient Date of Service: Jun 14, 2024 Billing Provider: KRISTOPHER HOLT Common Visit Codes: [id number] INP/OBS CARE (MOD) KRISTOPHER HOLT Jun 14, 2024 10:16
[2024-06-14] MEDS ORDERED: DOCUSATE SOD 100 MG CAP PO PRN (10:30)
[2024-06-14] MEDS ORDERED: HYDROcodone-ACET 5/325MG TAB PO PRN (10:30)
[2024-06-14] MEDS ORDERED: MORPHINE SULFATE INJ 2 MG/ml SYRG IV PRN (10:30)
--- NOTE | 2024-06-14 10:31 | DVH ---
CHEST RADIOGRAPH Indication: ETOH withrawal Technique: Frontal and lateral view of the chest was obtained Comparison: None FINDINGS: Lines and Tubes: None Lungs: Clear Pleura: No effusion. No pneumothorax. Cardiomediastinal contours: Unremarkable Bones: Unremarkable IMPRESSION: No evidence of acute disease.
[2024-06-14] MEDS ORDERED: LEVE500T3 PO (10:32)
[2024-06-14] MEDS: LORazepam 2MG/ML-1ML VIAL IV SCH (12:00)
[2024-06-14] MEDS: ONDANSETRON HCL 4 MG/2 ML VIAL IV PRN (15:26)
[2024-06-14] MEDS: SODIUM CHLORIDE 0.9% 1,000 ML IV SCH (16:59)
[2024-06-14] MEDS: THIAMINE HCL 100 MG TAB PO SCH (17:01)
[2024-06-14] MEDS: MULTIPLE VITAMIN TAB PO SCH (17:02)
[2024-06-14 17:11] VITALS: PULSE 112; RESP 16; O2SAT 98
[2024-06-14 20:00] VITALS: PULSE 112; RESP 16; O2SAT 98
[2024-06-15 03:20] LABS: Amphetamine Screen, Urine Neg (NEGATIVE); Barbiturate Scree,Urine Neg (NEGATIVE); Benzodiazephine Screen, Urine Pos (NEGATIVE); Cocaine Screen, Urine Neg (NEGATIVE)
[2024-06-15 03:21] LABS: Cannabinoid Screen, Urine Neg (NEGATIVE); Opiate Scree,Urine Neg (NEGATIVE); Phencyclidine Screen, Urine Neg (NEGATIVE)
[2024-06-15 06:05] LABS: Basophils # (auto) 0 10 ^3/uL (0-0.2); Basophils % (auto) 0.5 % (0.0-2.0); Eosinophils # (auto) 0.1 10 ^3/uL (0-0.8); Eosinophils % (auto) 1.3 % (0.0-7.0); Hematocrit 38.8 % (41.0-53.0); Hemoglobin 12.7 g/dL (13.5-17.5); Lymphocytes # (auto) 2.2 10 ^3/uL (0.4-5.4); Lymphocytes % (auto) 30.6 % (10.0-50.0); Mean Corpuscular Hemoglobin 29.2 pg (28.0-32.0); Mean Corpuscular Hgb Conc. 32.6 g/dL (32.0-36.0); Mean Corpuscular Volume 89.4 fL (80.0-100.0); Monocytes # (auto) 0.9 10 ^3/uL (0-1.3); Monocytes % (auto) 12.7 % (0.0-12.0); Neutrophils % (auto) 54.9 % (37.0-80.0); Nucleated Red Blood Cells % 0.1 %; Platelet Count (auto) 312 10^3/uL (140-450); Red Blood Cells 4.34 10^6/uL (4.5-5.90); White Blood Cell 7.3 10^3/uL (4.4-10.8)
[2024-06-15 06:30] LABS: Alanine Aminotransferase 40 U/L (7-40); Albumin 4.1 g/dL (3.2-4.8); Alkaline Phosphatase 88 U/L (46-116); Anion Gap 11 (5-15); Aspartate Aminotransferase 26 U/L (13-40); BUN/Creatinine Ratio 7.7 (10.0-20.0); Bilirubin, Total 1.8 mg/dL (0.2-1.0); Blood Urea Nitrogen 6 mg/dL (9-23); Calcium 9.5 mg/dL (8.7-10.4); Carbon Dioxide 24 mmol/L (20-31); Chloride 103 mmol/L (98-107); Glucose 74 mg/dL (74-106); Potassium 3.5 mmol/L (3.5-5.1); Sodium 138 mmol/L (136-145); Total Protein 6.9 g/dL (5.7-8.2)
[2024-06-15] MEDS: ACETAMINOPHEN 325 MG TAB PO PRN (06:47)
[2024-06-15 07:30] VITALS: PULSE 102; RESP 14; O2SAT 97
[2024-06-15] MEDS: chlordiazePOXIDE HCL 25 MG CAP PO SCH (08:47)
[2024-06-15 11:00] VITALS: BP 155/106; PULSE 74; RESP 16; TEMP 98.7; O2SAT 98
[2024-06-15 14:40] VITALS: BP 123/64; PULSE 95; TEMP 98.8; O2SAT 95
[2024-06-15 14:54] VITALS: BP 123/64; PULSE 92; RESP 16; TEMP 98.7; O2SAT 95
--- NOTE | 2024-06-15 17:05 | DVHPN2 ---
Subjective Patient continues to report having visual hallucinations Reviewed: Care Plan, H&P, Labs, Medications Changes from previous H/P or p: No Changes General: Per HPI Eyes: No Pain, No Vision change, No Conjunctivae inflammation, No Eyelid inflammation, No Other, No Redness ENT: No Ear pain, No Ear discharge, No Nose pain, No Nose discharge, No Nose congestion, No Mouth pain, No Mouth swelling, No Throat pain, No Throat swelling, No Other Cardiovascular: No Chest Pain, No Palpitations, No Orthopnea, No Paroxysmal Noc. Dyspnea, No Edema, No Lt Headedness, No Other Respiratory: No Cough, No Dry, No Shortness of breath, No SOB with excertion, No Wheezing, No Hemoptysis, No Pleuritic Pain, No Sputum, No Other Gastrointestinal: Nausea, Vomiting; No Abdominal Pain, No Diarrhea, No Constipation, No Melena, No Hematochezia, No Other Genitourinary: No Dysuria, No Frequency, No Incontinence, No Hematuria, No Retention, No Other Musculoskeletal: No other, No neck pain, No shoulder pain, No arm pain, No back pain, No hand pain, No leg pain, No foot pain Skin: No Rash, No Lesions, No Jaundice, No Bruising, No Other Objective Vitals Vital Signs Date Time Temp Pulse Resp B/P (MAP) Pulse Ox O2 Delivery O2 Flow Rate FiO2 06/15/24 14:54 98.7 92 16 123/64 (83) 95 98.7 06/15/24 07:30 Room Air* 0 21 Intake/Output Intake and Output 06/15/24 07:00 Intake Total 300 ml Output Total 450 ml Balance -150 ml Intake IV Total 300 ml Output Urine Total 450 ml General Appearance: Alert, Oriented X3, Cooperative, No acute distress HEENT: Atraumatic, PERRLA Lungs: Clear to auscultation, Normal air movement Cardiovascular: Normal S1, Normal S2 Abdomen: Normal bowel sounds, Soft Genitourinary: No Apparent Abnormalities Musculoskeletal: Normal sensory function, Normal motor function Extremities: No clubbing, No cyanosis Neuro: Normal speech Psych/Mental Status: Mental status NL, Mood NL Medications Current Medications Medications Dose Ordered Sig/Malia Route Start Time Stop Time Status Last Admin Dose Admin Thiamine HCl 100 mg DAILY PO 06/14/24 10:00 06/15/24 10:22 100 MG Multivitamins 1 tab DAILY PO 06/14/24 10:00 06/15/24 10:22 1 TAB Lorazepam 2 mg Q2HPRN PRN PO 06/14/24 10:00 Sodium Chloride 1,000 ml @ 100 mls/hr Q10H IV 06/14/24 10:00 06/15/24 16:06 100 MLS/HR Hydralazine HCl 10 mg Q6HP PRN IV 06/14/24 10:15 Acetaminophen/ Hydrocodone Bitart 1 tab Q4HP PRN PO 06/14/24 10:30 Ondansetron HCl 4 mg Q4HP PRN IV 06/14/24 10:30 06/14/24 15:26 4 MG Docusate Sodium 100 mg BIDPRN PRN PO 06/14/24 10:30 Acetaminophen 650 mg Q6HP PRN PO 06/14/24 10:30 06/15/24 06:47 650 MG Morphine Sulfate 2 mg Q4HPRN PRN IV 06/14/24 10:30 Chlordiazepoxide HCl 50 mg Q8H PO 06/15/24 07:30 06/15/24 23:31 06/15/24 14:58 50 MG Chlordiazepoxide HCl 50 mg Q12HR PO 06/16/24 10:00 06/16/24 22:01 Chlordiazepoxide HCl 25 mg Q12HR PO 06/17/24 10:00 06/17/24 22:01 Chlordiazepoxide HCl 25 mg QAM PO 06/18/24 07:00 06/18/24 07:01 Laboratory Results Laboratory Tests 06/15/24 05:10 Chemistry Test 06/15/24 05:10 Albumin 4.1 g/dL (3.2-4.8) Calcium Level 9.5 mg/dL (8.7-10.4) Total Protein 6.9 g/dL (5.7-8.2) LFT Test 06/15/24 05:10 Alanine Aminotransferase (ALT) 40 U/L (7-40) Alkaline Phosphatase 88 U/L (46-116) Aspartate Amino Transferase (AST) 26 U/L (13-40) Total Bilirubin 1.8 mg/dL (0.2-1.0) H Labs and/or images reviewed: Labs reviewed by me, Image(s) reviewed by me Assessment/Plan Assessment/Plan Impression: -acute alcohol withdrawal -obesity -history of alcoholism with previous admissions for alcohol withdrawals -accelerated hypertension Plan: -p.r.n. Librium -continue thiamine, MVI -IV hydration -antihypertensives -social service consultation for DC planning for rehab -reassess for discharge in a.m. if visual hallucinations have resolved Total time spent with patient discussing and formulating plan of care: 35 minutes. This medical document was created using an electronic medical record system with [employer] dictation system. Although this document has been carefully reviewed, there may still be some phonetic and typographical errors. These areas are purely typographical due to imperfections of the software programs, and do not reflect any compromise in the patient's medical care. Plan discussed with: Patient, Other (RN) Date of Service: Jun 15, 2024 Billing Provider: ALBER MCKEON NP Common Visit Codes: [id number] INP/OBS CARE(HIGH) ALBER MCKEON NP Jun 15, 2024 17:05
[2024-06-15] MEDS ORDERED: chlordiazePOXIDE HCL 25 MG CAP PO PRN (17:15)
[2024-06-15 17:57] VITALS: BP 132/62; PULSE 93; RESP 16; O2SAT 98
[2024-06-15 21:23] VITALS: BP 127/67; PULSE 99; RESP 18; TEMP 98.2; O2SAT 99
[2024-06-16] MEDS: LORazepam 0.5 MG TAB PO PRN (05:27)
[2024-06-16 09:15] VITALS: BP 130/94; PULSE 94; RESP 18; TEMP 97.6; O2SAT 96
[2024-06-16] MEDS ORDERED: chlordiazePOXIDE HCL 25 MG CAP PO SCH (10:00)
[2024-06-16] MEDS: amLODIPine BESYLATE 5 MG TAB PO SCH (10:44)
--- NOTE | 2024-06-16 12:14 | DVHDS2 ---
Discharge Summary Date of Admission Jun 14, 2024 at 10:29 Date of Discharge: Jun 16, 2024 Admitting Diagnosis Acute alcohol withdrawal Labs/Diagnostic Data: Laboratory Results Test 06/15/24 05:10 06/15/24 02:10 White Blood Count 7.3 10^3/uL (4.4-10.8) Red Blood Count 4.34 10^6/uL (4.5-5.90) Hemoglobin 12.7 g/dL (13.5-17.5) Hematocrit 38.8 % (41.0-53.0) Mean Corpuscular Volume 89.4 fL (80.0-100.0) Mean Corpuscular Hemoglobin 29.2 pg (28.0-32.0) Mean Corpuscular Hemoglobin Concent 32.6 g/dL (32.0-36.0) Red Cell Distribution Width 15.0 % (11.8-14.3) Platelet Count 312 10^3/uL (140-450) Mean Platelet Volume 8.1 fL (6.9-10.8) Neutrophils (%) (Auto) 54.9 % (37.0-80.0) Lymphocytes (%) (Auto) 30.6 % (10.0-50.0) Monocytes (%) (Auto) 12.7 % (0.0-12.0) Eosinophils (%) (Auto) 1.3 % (0.0-7.0) Basophils (%) (Auto) 0.5 % (0.0-2.0) Neutrophils # (Auto) 4.0 10 ^3/uL (1.6-8.6) Lymphocytes # (Auto) 2.2 10 ^3/uL (0.4-5.4) Monocytes # (Auto) 0.9 10 ^3/uL (0-1.3) Eosinophils # (Auto) 0.1 10 ^3/uL (0-0.8) Basophils # (Auto) 0 10 ^3/uL (0-0.2) Nucleated Red Blood Cells 0.1 % Sodium Level 138 mmol/L (136-145) Potassium Level 3.5 mmol/L (3.5-5.1) Chloride Level 103 mmol/L (98-107) Carbon Dioxide Level 24 mmol/L (20-31) Anion Gap 11 (5-15) Blood Urea Nitrogen 6 mg/dL (9-23) Creatinine 0.78 mg/dL (0.700-1.30) Glomerular Filtration Rate Calc 122 mL/min (>90) BUN/Creatinine Ratio 7.7 (10.0-20.0) Serum Glucose 74 mg/dL (74-106) Calcium Level 9.5 mg/dL (8.7-10.4) Total Bilirubin 1.8 mg/dL (0.2-1.0) Aspartate Amino Transferase (AST) 26 U/L (13-40) Alanine Aminotransferase (ALT) 40 U/L (7-40) Alkaline Phosphatase 88 U/L (46-116) Total Protein 6.9 g/dL (5.7-8.2) Albumin 4.1 g/dL (3.2-4.8) Urine Opiates Screen Neg (NEGATIVE) Urine Fentanyl Screen Neg (NEGATIVE) Urine Barbiturates Screen Neg (NEGATIVE) Urine Phencyclidine Screen Neg (NEGATIVE) Urine Amphetamines Screen Neg (NEGATIVE) Urine Benzodiazepines Screen Pos (NEGATIVE) Urine Cocaine Screen Neg (NEGATIVE) Urine Cannabinoids Screen Neg (NEGATIVE) Other Laboratory Tests 06/15/24 05:10 Brief Hx & Hospital Course: istory of Present Illness Thomas Elizondo is a 29YO M with pmHx of mordbid obesity, epileptic seizures, and polysubstance abuse who presents to the ED for generalized tremors s/p ETOH intoxication and a headache. Upon examination patient reports he has been drinking nonstop for the last 3 days 750mL of vodka d/t stress from being unemployed. He also reports vaping daily for 6 years. Patient reports he lives with a roommate who also drinks alcohol. He reports of nausea and vomiting x 2 today. Patient reported that his seizures begain when he was 16YO and has been on keppra 500mg BID. Patient denies suicidal ideation, numbness, tingling, weakness, dizziness, lightheadness, abdomnial pain, shortness of breath, and chest pain. Course of hospitalization: Patient was started on CIWA protocol with IV lorazepam as needed as well as Librium. Patient was started on antihypertensives. Social service consultation has been obtained, who provided the patient appropriate resources for rehabilitation after discharge. The patient's visual hallucinations and tremors have resolved. He was no longer nauseated. Patient was tolerating oral intake without any problems. He is agreeable to be discharged home, attempt to stop alcohol use in addition to following up with alcohol rehabilitation resources that were provided by geriatric social work professor. Physical examination General: Alert and Oriented x3. No acute distress. Well-nourished. Eyes: EOMI. Anicteric. HENT: Moist mucous membranes. Lungs: Clear to auscultation bilaterally. No accessory muscle use. Cardiovascular: Regular rate and rhythm. No murmur. No JVD. Abdomen: Soft, non-tender and non-distended. No palpable masses. Extremities: No edema. Non-tender. Skin: No rashes or lesions. Warm. Neurologic: No focal neurological deficits. CN II-XII grossly intact, but not individually tested. Psychiatric: Cooperative. Appropriate mood and affect. Total time spent with patient discussing and formulating plan of care: 35 minutes. This medical document was created using an electronic medical record system with [employer] dictation system. Although this document has been carefully reviewed, there may still be some phonetic and typographical errors. These areas are purely typographical due to imperfections of the software programs, and do not reflect any compromise in the patient's medical care. Condition at Discharge: Guarded Final Diagnosis/Problems List Acute alcohol withdrawal Secondary Diagnosis: -obesity -history of alcoholism with previous admissions for alcohol withdrawals -accelerated hypertension Discharge Disposition: Home Discharge Instruct/Medications Diet: Regular Activity: No Restrictions, As Tolerated Follow Up/Referral: Discharge Clinic in one week Follow up with PCP in 1-2 weeks 36 Discharge Statement: "Patient was advised to return to the ER or call 911 if any headaches, dizziness, shortness of breath, chest pain, abdominal pain, bleeding, fevers, or worsening of medical condition. Patient was counseled about treatment plan, medications, possible side effects, patientverbalized understanding. All questions were answered to the best of my ability. This discharge took greater then 30 minutes in planning, reviewing documentation, counseling the patient, and discussing with other team members." ASSESSMENT ASSESSMENT Assessment Acute alcohol withdrawal Date of Service: Jun 16, 2024 Billing Provider: ALBER MCKEON NP Common Visit Codes: [id number] INP/OBS CARE(HIGH) ALBER MCKEON NP Jun 16, 2024 12:14
[2024-06-16 13:00] VITALS: BP 126/69; PULSE 90; RESP 19; TEMP 97.9; O2SAT 95
[2024-06-16 14:47] VITALS: BP 130/94; PULSE 94; RESP 20; TEMP 36.6; O2SAT 96
[2024-06-17] MEDS ORDERED: chlordiazePOXIDE HCL 25 MG CAP PO SCH (10:00)
[2024-06-18] MEDS ORDERED: chlordiazePOXIDE HCL 25 MG CAP PO SCH (07:00)
== END 2024-06-16 16:25 | disposition home or self-care (01) | DRG 58 ==
LOC: ER 02:08 → EDBD 02:08 → OVERFLOW 10:29 → TELE 11:20 → TELE-WESTW 06-16 09:23
PROVIDERS: ATTEND Nurse Practitioner Acute Care
DX: R25.1 Tremor, unspecified (principal); F10.231 Alcohol dependence with withdrawal delirium; E66.9 Obesity, unspecified; G40.909 Epilepsy, unspecified, not intractable, without status epilepticus; F17.210 Nicotine dependence, cigarettes, uncomplicated; F10.229 Alcohol dependence with intoxication, unspecified; F19.10 Other psychoactive substance abuse, uncomplicated; I10 Essential (primary) hypertension; Y90.9 Presence of alcohol in blood, level not specified; Z68.41 Body mass index [BMI] 40.0-44.9, adult
CPT/HCPCS: 36415; 71046; 80053; 80307; 85025; 87081; G0378; J2405